=== PATIENT | female | born 1960 ===

== ENCOUNTER 2017-02-15 17:06 | Emergency (ER) | payer MEDICAID ==
[2017-02-15 17:16] VITALS: BP 167/95; PULSE 72; RESP 18; TEMP 98.2; O2SAT 99
[2017-02-15] MEDS ORDERED: Lidocaine 5% Patch TD STA (17:30)
[2017-02-15] MEDS ORDERED: Lidocaine 5% Patch TD ONE (17:50)
--- NOTE | 2017-02-15 18:13 | C.PDOC ---
History Of Present Illness 56 year old female, whose PMHx includes sciatica, presents to the ED for evaluation of right-sided lower back pain which began around 2 weeks ago. Patient has been taking Naproxen without significant relief. Patient denies fever, chills, urinary/bowel incontinence, upper/lower extremity numbness/ weakness, recent trauma/injury or falls. Time Seen by Provider: 02/15/17 17:26 Chief Complaint (Nursing): Back Pain History Per: Patient History/Exam Limitations: no limitations Onset/Duration Of Symptoms: Other (2 weeks ) Current Symptoms Are (Timing): Still Present Quality Of Discomfort: "Pain" Previous Symptoms: Back Pain, Chronic Pain Associated Symptoms: denies: Incontinence, New Weakness, New Numbness Additional History Per: Patient Past Medical History Reviewed: Historical Data, Nursing Documentation, Vital Signs Vital Signs: Last Vital Signs Temp 98.2 F 02/15/17 17:15 Pulse 72 02/15/17 17:15 Resp 18 02/15/17 17:15 BP 167/95 H 02/15/17 17:15 Pulse Ox 99 02/15/17 18:13 - Medical History PMH: Anxiety Other PMH: sciatica Surgical History: No Surg Hx Family History: States: Unknown Family Hx - Social History Hx Tobacco Use: No Hx Alcohol Use: No Hx Substance Use: No - Immunization History Hx Tetanus Toxoid Vaccination: (unk) Hx Influenza Vaccination: No Hx Pneumococcal Vaccination: No Review Of Systems Constitutional: Negative for: Fever, Chills Genitourinary: Negative for: Incontinence Musculoskeletal: Positive for: Back Pain (right-sided, lower ) Neurological: Negative for: Weakness, Numbness Physical Exam - Physical Exam Appears: Non-toxic, No Acute Distress Skin: Normal Color, Warm, Dry Back: Paraspinal Tenderness (right-sided ) Extremity: Normal ROM, No Tenderness, Capillary Refill (less than 2 seconds ), No Deformity, No Swelling Neurological/Psych: Oriented x3, Normal Speech, Normal Cognition, Normal Sensation Gait: Steady ED Course And Treatment O2 Sat by Pulse Oximetry: 99 (on RA) Pulse Ox Interpretation: Normal Medical Decision Making Medical Decision Making: Impression: 56 year old female with right-sided lower back pain Plan: * Toradol IM * Valium PO * Lidoderm TD * reassess and disposition Progress: Toradol IM, Valium PO, Lidoderm TD administered. On reassessment, patient is resting comfortably, showing no signs of distress and reports an improvement in her symptoms. Patient is ambulatory in the ED and is stable for discharge. Patient is advised to follow up with her PMD within 1- 2 days for further evaluation and/or return to the ED if symptoms return or worsen. Disposition Counseled Patient/Family Regarding: Diagnosis, Need For Followup, Rx Given - Disposition Disposition: HOME/ ROUTINE Disposition Time: 18:12 Condition: IMPROVED Additional Instructions: Vaya a anderson mdico o la clnica en 2-5 waters sin falta, para mas evaluacin. [place] los medicamentos katherine indicado. Volver a la debi de emergencia en cualquier momento si los sntomas persisten o empeoran. Prescriptions: Cyclobenzaprine [Cyclobenzaprine HCl] 10 mg PO TID #21 tab Naproxen [Naprosyn] 1 tab PO BID PRN #25 tab PRN Reason: Pain Instructions: Sciatica (ED) Forms: [employer] (Albanian) Print Language: SOUTH AFRICAN - POA Present On Arrival: None - Clinical Impression Clinical Impression: Sciatica - PA / ONSITE CASE MANAGER / Resident Statement MD/DO has reviewed & agrees with the documentation as recorded. - Scribe Statement The provider has reviewed the documentation as recorded by the Scribe (Lilli Johnson) All medical record entries made by the Scribe were at my direction and personally dictated by me. I have reviewed the chart and agree that the record accurately reflects my personal performance of the history, physical exam, medical decision making, and the department course for this patient. I have also personally directed, reviewed, and agree with the discharge instructions and disposition.
== END 2017-02-15 18:44 | disposition home or self-care (01) ==
LOC: C.ER 17:06
DX: M54.30 Sciatica, unspecified side (principal)
CPT/HCPCS: 96372; 99283; J1885